=== PATIENT | male | born 1980 | race Caucasian/White ===

== ENCOUNTER 2022-06-12 10:48 | Emergency (ER) | payer OTHER ==
[~2022-06-12] VITALS: Ht 182.9 cm; Wt 88.5 kg
[2022-06-12 10:55] VITALS: BP 147/76
[2022-06-12] MEDS ORDERED: SULF1TAB48 PO (11:05)
[2022-06-12] MEDS ORDERED: SILV20CR13 TP (11:05)
--- NOTE | 2022-06-12 11:20 | NUR ---
SEEN AND EVALUATED BY TANI. WOUND CARE PROVIDED. DISCHARGED TO [facility] IN STABLE CONDITION.
== END 2022-06-12 11:21 ==
LOC: ER 10:52
DX: L03.116 Cellulitis of left lower limb (principal); L03.115 Cellulitis of right lower limb